=== PATIENT | female | born 1950 | race Hispanic/Latino ===

== ENCOUNTER 2017-07-03 11:14 | Day surgery (SDC) | payer MEDICARE, OTHER ==
[2017-07-02 09:32] VITALS: BMI 25.6
--- OUTSIDE RECORDS SUMMARY | 2017-07-03 11:20 | XMS | Clinical Summary ---
:1950 Author Organization [facility] Address [address] [place] [address] Phone Care Team Providers Name Role Phone , Primary Care Provider Unavailable Allergies Not on File Current Medications Not on file Active Problems Not on file Social History Tobacco Use Types Packs/Day Years Used Date Never Assessed Sex Assigned at Date Recorded Not on file Last Filed Vital Signs Not on file Plan of Treatment Not on file Results Not on filefrom Last 3 Months
[2017-07-03 12:43] LABS: #Basophils 0.1 thou/uL (0.0-0.2); #Eosinphils 0.2 thou/uL (0.0-0.7); #Lymphocytes 1.8 thou/uL (1.20-3.40); #Monocytes 0.4 thou/uL (0.11-0.59); #Neutrophils 3.8 thou/uL (1.40-6.50); %Basophils 0.9 % (0.0-1.0); %Eosinophils 3.1 % (0.0-10.0); %Lymphocytes 28.6 % (21.0-51.0); %Monocytes 6.3 % (0.0-10.0); Hematocrit 34.8 % (36.0-47.0); Mean Platelet Volume 8.2 fL (7.4-10.4); Red Blood Cell (RBC) Count 3.59 mill/uL (4.20-5.40); White Blood Cell (WBC) Count 6.2 thou/uL (4.8-10.8)
[2017-07-03 13:03] LABS: Anion Gap 10 mmol/L (10-20); BUN (Urea Nitrogen) 13 mg/dL (9.8-20.1); Calc. Creatinine Clearance 79 mL/min (70-130); Calcium 9.3 mg/dL (7.8-10.44); Carbon Dioxide 26 mmol/L (23-31); Chloride 107 mmol/L (98-107); Estimated GFR-MDRD 86
[2017-07-03] MEDS ORDERED: Midazolam HCl 2 mg/2 ml Vial ONE (13:35)
[2017-07-03] MEDS ORDERED: Fentanyl 100 MCG/2 ML VIAL ONE ×5 (13:35→15:27)
[2017-07-03] MEDS ORDERED: Ondansetron HCl/PF 4 MG/2 ML Vial ONE (13:55)
[2017-07-03] MEDS ORDERED: Propofol 200 MG/20 ML VIAL ONE (13:55)
[2017-07-03] MEDS ORDERED: Glycopyrrolate 0.2 MG/ML 5 ML SYRINGE ONE (13:55)
[2017-07-03] MEDS ORDERED: Lidocaine 2% PF 10 ML AMP (For Epidural Use) ONE (13:55)
[2017-07-03] MEDS ORDERED: Ketorolac Tromethamine 30 MG/ML VIAL ONE (13:55)
[2017-07-03] MEDS ORDERED: Ondansetron HCl/PF 4 MG/2 ML Vial IVP PRN (15:14)
[2017-07-03] MEDS ORDERED: Promethazine HCl 25 MG/ML VIAL IM PRN (15:14)
[2017-07-03] MEDS ORDERED: Promethazine HCl 25 MG/ML VIAL SLOW IVP PRN (15:14)
[2017-07-03] MEDS ORDERED: HYDROmorphone 2 MG/ML VIAL SLOW IVP PRN (15:14)
[2017-07-03] MEDS ORDERED: HYDROcodone/Acetaminophen 7.5/325 mg Tablet ONE (17:18)
--- NOTE | 2017-07-03 19:27 | OP ---
DATE OF PROCEDURE: 07/03/2017 SURGEON: Manny Mcintyre MD RECRUITER ACCOUNT MANAGER: Tara Longo PA-C PROCEDURE: Right L5 foraminotomy. PROCEDURE IN DETAIL: The patient was brought into the operating room, intubated. She was rolled in the prone position on gel-filled chest rolls. Incision made exposing L5 and S1 on the right and ou r level was confirmed by x-ray. We performed a right L5 laminectomy and complete facetectomy, and p erformed a thorough right L5 foraminotomy, completely decompressing right L5 nerve root. The wound was then extensively irrigated, immaculate hemostasis was secured. Vancomycin powder was applied an d the wound was closed in anatomic layers.
--- NOTE | 2017-07-05 09:05 | EKG ---
Test Reason : PREOP Blood Pressure : / mmHG Vent. Rate : 055 BPM Atrial Rate : 055 BPM P-R Int : 154 ms QRS Dur : 086 ms QT Int : 436 ms P-R-T Axes : 036 045 031 degrees QTc Int : 417 ms Sinus bradycardia Otherwise normal ECG Confirmed by KITTY POWERS ([id number]) on 07/05/2017 9:05:09 AM Referred By: INO Confirmed By:KITTY POWERS
== END 2017-07-03 18:10 | disposition home or self-care (01) ==
LOC: SDC 11:14
PROVIDERS: ATTEND Neurological Surgery
PROC: 0SB20ZZ Excision of Lumbar Vertebral Disc, Open Approach (ICD-10-PCS; principal; 2017-07-03)
PROC: 01NB0ZZ Release Lumbar Nerve, Open Approach (ICD-10-PCS; 2017-07-03)
DX: M54.16 Radiculopathy, lumbar region (principal); I10 Essential (primary) hypertension; E78.5 Hyperlipidemia, unspecified; M19.90 Unspecified osteoarthritis, unspecified site; Z91.048 Other nonmedicinal substance allergy status; Z96.641 Presence of right artificial hip joint; Z79.899 Other long term (current) drug therapy
CPT/HCPCS: 36415; 76001; 80048; 85025; 93005; 93010; 96374; J1170; J1885; J2001; J2250; J2405; J2704; J3010; J3370

== ENCOUNTER 2017-10-29 06:28 | Day surgery (SDC) | payer MEDICARE, OTHER ==
[2017-10-26 10:54] VITALS: BMI 24.7
[2017-10-29] MEDS ORDERED: Sodium Chloride 0.9% 10 ML ONE (06:53)
[2017-10-29] MEDS ORDERED: Fentanyl 100 MCG/2 ML VIAL ONE ×2 (07:05→09:53)
[2017-10-29 07:08] LABS: #Basophils 0.1 thou/uL (0.0-0.2); #Eosinphils 0.2 thou/uL (0.0-0.7); #Lymphocytes 2.5 thou/uL (1.20-3.40); #Monocytes 0.6 thou/uL (0.11-0.59); #Neutrophils 3.9 thou/uL (1.40-6.50); %Basophils 1.2 % (0.0-1.0); %Eosinophils 2.2 % (0.0-10.0); %Lymphocytes 34.4 % (21.0-51.0); %Monocytes 8.4 % (0.0-10.0); %Neutrophils 53.8 % (42.0-75.0); Hemoglobin 11.8 g/dL (12.0-16.0); Mean Corpuscular HGB CONC 31.9 g/dL (32.0-36.0); Mean Corpuscular Hemoglobin 30.9 pg (27.0-31.0); Mean Corpuscular Volume 96.6 fl (81.0-99.0); Mean Platelet Volume 7.9 fL (7.4-10.4); Platelet Count 267 thou/uL (130-400); RBC Distribution Width 12.9 % (11.5-14.5); Red Blood Cell (RBC) Count 3.82 mill/uL (4.20-5.40); White Blood Cell (WBC) Count 7.2 thou/uL (4.8-10.8)
[2017-10-29] MEDS ORDERED: CEFAZOLIN/Water 2 GM/20 ML SYRINGE ONE (07:10)
[2017-10-29 07:32] LABS: Anion Gap 15 mmol/L (10-20); BUN (Urea Nitrogen) 11 mg/dL (9.8-20.1); Calc. Creatinine Clearance 66 mL/min (70-130); Calcium 9.6 mg/dL (7.8-10.44); Carbon Dioxide 24 mmol/L (23-31); Chloride 102 mmol/L (98-107); Estimated GFR-MDRD 72; Glucose 82 mg/dL (80-115); Potassium 3.7 mmol/L (3.5-5.1); Sodium 137 mmol/L (136-145)
--- NOTE | 2017-10-29 09:48 | OP ---
DATE OF PROCEDURE: 10/29/2017 SURGEON: Manny Mcintyre M.D. ZIPPER REPAIRER: Dalton Spencer PA-C PROCEDURES: Anterior cervical discectomy C5-6 and C6-7, interbody arthrodesis, intravertebral biomec hanical device, local morselized autograft, demineralized bone matrix, anterior titanium instrumentat ion C5-6 and C6-7. PROCEDURE IN DETAIL: The patient was brought into the operating room and intubated. She was positio lynn supine with the head in modest extension on a gel-filled donut. Incision was made in the right p recervical area and dissecting medial to the sternocleidomastoid muscle. We identified the anterior cervical spine and our level was confirmed by x-ray. We debrided anterior osteophytes, placed distra ction across the disc space and completely debrided the intravertebral disks at C5-C6 and C6-C7 decom pressing the neural elements. The bony endplates were then decorticated for the purpose of arthrodes is and appropriately sized intravertebral biomechanical PEEK device was brought into the field, fille d with demineralized bone matrix and local morselized autograft, and tapped into place securely at C5 -6 and at C6-7. Next, an anterior plate was brought into the field and secured to C5, C6, and C7 usi ng two 14 mm screws at each level. The wound was then extensively irrigated, immaculate hemostasis w as secured, and the wound was closed in anatomic layers.
[2017-10-29] MEDS ORDERED: HYDROmorphone 0.5 MG/0.5 ML SYRINGE ONE ×4 (10:04→10:40)
[2017-10-29] MEDS ORDERED: HYDROcodone/Acetaminophen 5/325 mg Tablet ONE (11:55)
[2017-10-29] MEDS ORDERED: Ondansetron HCl/PF 4 MG/2 ML Vial ONE (14:53)
[2017-10-29] MEDS ORDERED: Dexamethasone 20 MG/5 ML VIAL ONE (14:53)
[2017-10-29] MEDS ORDERED: Propofol 200 MG/20 ML VIAL ONE (14:53)
[2017-10-29] MEDS ORDERED: Glycopyrrolate 0.2 MG/ML 5 ML SYRINGE ONE (14:53)
[2017-10-29] MEDS ORDERED: Lidocaine 1% PF 5 ML VIAL ONE (14:53)
== END 2017-10-29 12:15 | disposition home or self-care (01) ==
LOC: SDC 06:28 → EDSTATUS 12:17
PROVIDERS: ATTEND Neurological Surgery
PROC: 0RG20A0 Fusion of 2 or more Cervical Vertebral Joints with Interbody Fusion Device, Anterior Approach, Anterior Column, Open Approach (ICD-10-PCS; principal; 2017-10-29)
DX: M54.12 Radiculopathy, cervical region (principal); M48.02 Spinal stenosis, cervical region; I10 Essential (primary) hypertension; M19.90 Unspecified osteoarthritis, unspecified site
CPT/HCPCS: 20930; 22551; 22552; 22853 ×2; 76001; 80048; 85025; 96374 ×2; C1713 ×2; 36415; A4216; J1100; J1170; J2001; J2405; J2704; J3010; J3490

== ENCOUNTER 2017-11-13 10:12 | Outpatient (CLI) | payer MEDICARE, OTHER ==
--- NOTE | 2017-11-13 12:19 | RAD ---
RADIOGRAPH CERVICAL SPINE 3 VIEWS: DATE: 11-13-17 HISTORY: 67-year-old female with cervicalgia, M54.2 COMPARISON: 05-29-17 FINDINGS: Anterior metallic plate and screws have been placed at C5, C6, and C7. There has been interval placem ent of interbody spacers, widening the previously narrowed disc spaces at C5-6 and C6-7. The previous ly demonstrated slight degenerative retrolisthesis of C5 and C6 has resolved as a result of this. Ali gnment is within normal limits currently. There are degenerative facet changes of varying degrees macario aterally. There is no significant disc space narrowing at any level. Minimally increased prevertebral soft tissue thickening, probably related to the ACDF. Degenerative changes at the bilateral atlantoa xial joints are mild. IMPRESSION: Status post anterior cervical discectomy and fusion at C5-6-7. CHERRIE POS: [place]
== END 2017-11-13 10:13 | disposition home or self-care (01) ==
LOC: TBSIIMAG 10:12
PROVIDERS: ATTEND Neurological Surgery
DX: M54.2 Cervicalgia (principal); Z98.1 Arthrodesis status
CPT/HCPCS: 72040

== ENCOUNTER 2018-01-10 13:13 | Outpatient (CLI) | payer MEDICARE, OTHER ==
--- NOTE | 2018-01-10 14:51 | RAD ---
CERVICAL SPINE 3 VIEWS: HISTORY: Followup surgery. COMPARISON: 11/13/17. FINDINGS: Anterior plate and screws again noted transfixing C5, C6, and C7. Disk implants are present at these levels. The plate and implants are unchanged in position when compared to 11/13/17. Degenerative shobha nges are again noted. IMPRESSION: Stable postoperative changes when compared to prior study. POS: KELLY
== END 2018-01-10 13:14 | disposition home or self-care (01) ==
LOC: TBSIIMAG 13:13
PROVIDERS: ATTEND Neurological Surgery
DX: M50.30 Other cervical disc degeneration, unspecified cervical region (principal); Z98.890 Other specified postprocedural states
CPT/HCPCS: 72040

== ENCOUNTER 2018-05-01 14:45 | Emergency (ER) | payer MEDICARE, OTHER ==
[2018-05-01] MEDS ORDERED: Metoprolol Tartrate 5 MG/5 ML VIAL ONE (15:07)
[2018-05-01 15:18] LABS: #Basophils 0.1 thou/uL (0.0-0.2); #Lymphocytes 1.2 thou/uL (1.20-3.40); #Monocytes 0.4 thou/uL (0.11-0.59); #Neutrophils 7.6 thou/uL (1.40-6.50); %Eosinophils 0.1 % (0.0-10.0); %Lymphocytes 12.7 % (21.0-51.0); %Neutrophils 82.3 % (42.0-75.0); Hemoglobin 13.4 g/dL (12.0-16.0); Mean Corpuscular HGB CONC 34.2 g/dL (32.0-36.0); Mean Corpuscular Hemoglobin 31.1 pg (27.0-31.0); Mean Corpuscular Volume 91.1 fL (78.0-98.0); Mean Platelet Volume 8.7 fL (7.4-10.4); Platelet Count 257 thou/uL (130-400); RBC Distribution Width 12.9 % (11.5-14.5); Red Blood Cell (RBC) Count 4.31 mill/uL (4.20-5.40); White Blood Cell (WBC) Count 9.2 thou/uL (4.8-10.8)
[2018-05-01 15:21] LABS: INR-International Normal Ratio 0.9; PTT 25.7 SEC (22.9-36.1); Prothrombin Time 12.6 SEC (12.0-14.7)
[2018-05-01 15:31] LABS: ALT (SGPT) 12 U/L (8-55); AST (SGOT) 15 U/L (5-34); Albumin 4.7 g/dL (3.4-4.8); Alkaline Phosphatase 74 U/L (40-150); Anion Gap 14 mmol/L (10-20); BUN (Urea Nitrogen) 13 mg/dL (9.8-20.1); Bilirubin, Total 0.3 mg/dL (0.2-1.2); Calc. Creatinine Clearance 0 mL/min (70-130); Carbon Dioxide 27 mmol/L (23-31); Chloride 104 mmol/L (98-107); Estimated GFR-MDRD 70; Globulin 2.9 g/dL (2.4-3.5); Glucose 231 mg/dL (80-115); Potassium 4.1 mmol/L (3.5-5.1); Protein, Total 7.6 g/dL (6.0-8.3); Sodium 141 mmol/L (136-145)
[2018-05-01 15:32] LABS: CKMB 0.9 ng/mL (0-6.6); Troponin I Less than 0.010 ng/mL (< 0.028)
--- NOTE | 2018-05-01 15:40 | RAD ---
RADIOGRAPH CHEST 1 VIEW: HISTORY: 67-year-old female with palpitations. FINDINGS: There are no air space densities, pulmonary edema, pneumothorax, or cardiomegaly. The lateral costop hrenic angles are sharp. IMPRESSION: No acute cardiopulmonary findings. jackie [] POS: [place]
[2018-05-01] MEDS ORDERED: Apixaban 5 MG TAB ONE (16:39)
[2018-05-01 17:06] LABS: CRP (Inflammatory) Less than 0.50 mg/dL (= or < 0.5)
== END 2018-05-01 16:57 | disposition home or self-care (01) ==
LOC: SCSER 14:45
DX: I48.91 Unspecified atrial fibrillation (principal); G89.29 Other chronic pain; F41.9 Anxiety disorder, unspecified; I10 Essential (primary) hypertension; Z79.899 Other long term (current) drug therapy
CPT/HCPCS: 71045; 80053; 82553; 83880; 84484; 85025; 85610; 85652; 85730; 86140; 93005; 96361; 96374

== ENCOUNTER 2018-05-02 14:20 | Outpatient (CLI) | payer MEDICARE, OTHER ==
--- NOTE | 2018-05-02 18:33 | MRI ---
MR OF THE LUMBAR SPINE WITH AND WITHOUT CONTRAST 05/02/18 INDICATION: History of back pain and right sided hip pain. TECHNIQUE: Multiplanar and multisequence MR images were obtained of the lumbar spine with and without contrast. 12 mL of Multihance was utilized for the exam. COMPARISON: Lumbar spine radiograph dated 05/29/17. Comparisons are also made with lumbar spine MR examination cole ed 05/29/17. FINDINGS: There is prior procedural change of a right hemilaminotomy at the S1 vertebral level. There is a broad based disc bulge with facet joint degenerative changes at L5-S1 and loss of disc spa ce height inducing moderate to severe right and moderate left neural foraminal narrowing. This appear s stable to the prior exam. At L4-5, there is a broad based bulge with facet hypertrophy inducing mild to moderate bilateral neur al foraminal narrowing that appears similar to the prior exam. At L3-4, there is an asymmetric to the right broad based disc bulge inducing mild central canal narro wing with mild to moderate bilateral neural foraminal narrowing that appears stable to the prior exam . At L2-3 level, there is mild central canal narrowing and mild bilateral neural foraminal narrowing th at appears slightly greater on the right but stable to the prior exam. At L1-L2, there is a mild broad based bulge with facet hypertrophy. It does not appears to induce sig nificant central canal or neural foraminal narrowing. Postcontrast images demonstrate no definite abnormal region of enhancement. IMPRESSION: 1. Postoperative lumbar spine. 2. Multilevel spondylosis and neural foraminal narrowing as detailed above. POS: CET
== END 2018-05-02 14:21 | disposition home or self-care (01) ==
LOC: TBSIIMAG 14:20
PROVIDERS: ATTEND Neurological Surgery
DX: M47.26 Other spondylosis with radiculopathy, lumbar region (principal); M47.27 Other spondylosis with radiculopathy, lumbosacral region; M99.83 Other biomechanical lesions of lumbar region; Z98.890 Other specified postprocedural states
CPT/HCPCS: 72158

== ENCOUNTER 2024-04-03 05:57 | Day surgery (SDC) | payer MEDICARE, OTHER ==
[2024-04-01 16:19] VITALS: BMI 24.7
[2024-04-03 06:47] LABS: #Basophils 0.07 10x3/uL (0.0-0.2); %Basophils 0.9 % (0.0-1.0); %Eosinophils 2.1 % (0.0-10.0); %Lymphocytes 24.9 % (21.0-51.0); %Monocytes 8.5 % (0.0-10.0); %Neutrophils 63.3 % (42.0-75.0); Hematocrit 43.6 % (36.0-47.0); Hemoglobin 14.4 g/dL (12.0-16.0); Mean Corpuscular Hemoglobin 31.6 pg (27.0-31.0); Mean Corpuscular Volume 95.8 fL (78.0-98.0); Platelet Count 273 10x3/uL (130-400); Red Blood Cell (RBC) Count 4.55 mill/uL (4.20-5.40)
[2024-04-03] MEDS ORDERED: Lidocaine 1% PF 5 ML VIAL ONE (06:52)
[2024-04-03] MEDS ORDERED: PROPOFOL ONE (06:58)
[2024-04-03 07:00] LABS: Anion Gap 17 mmol/L (10-20); BUN (Urea Nitrogen) 13 mg/dL (9.8-20.1); Calc. Creatinine Clearance 56 mL/min (70-130); Carbon Dioxide 22 mmol/L (23-31); Chloride 108 mmol/L (98-107); Estimated GFR 72; Glucose 98 mg/dL (83-110); Potassium 3.6 mmol/L (3.5-5.1); Sodium 143 mmol/L (136-145)
== END 2024-04-03 09:17 | disposition home or self-care (01) ==
LOC: SDC 05:57
PROVIDERS: ATTEND Internal Medicine Cardiovascular Disease
PROC: 5A2204Z Restoration of Cardiac Rhythm, Single (ICD-10-PCS; principal; 2024-04-03)
PROC: B246ZZ4 Ultrasonography of Right and Left Heart, Transesophageal (ICD-10-PCS; 2024-04-03)
DX: I48.19 Other persistent atrial fibrillation (principal); I08.1 Rheumatic disorders of both mitral and tricuspid valves; I10 Essential (primary) hypertension; E78.5 Hyperlipidemia, unspecified; Z79.01 Long term (current) use of anticoagulants; Z79.899 Other long term (current) drug therapy
CPT/HCPCS: 80048; 85025; 92960; 93005; 93312; J2704; 93010